=== PATIENT | female | born 2000 | race Caucasian/White ===

== ENCOUNTER 2023-12-13 11:52 | Emergency (ER) | payer BC ==
[2023-12-13 12:39] LABS: Specific Gravity 1.004 (1.005-1.030); Specific Gravity < 1.005 (1.005-1.030); Urine Bilirubin NEGATIVE (Negative); Urine Blood Negative (Negative); Urine Clarity Clear (Clear); Urine Color Colorless (Yellow); Urine Glucose NEGATIVE (Negative); Urine Ketones NEGATIVE (Negative); Urine Microscopic Reflex YN NO UMIC; Urine Nitrite NEGATIVE (Negative); Urine Protein NEGATIVE (Negative); Urine Urobilinogen Normal (Normal); Urine pH 6.5 (5.0-7.0)
[2023-12-13 12:41] LABS: Absolute Lymphocytes (CBC) 2.4 K/uL (0.7-4.9); Absolute Monocytes 0.5 K/uL (0.1-1.3); Absolute Neutrophil 4.9 K/uL (1.8-8.0); Basophils % 0.6 % (0-1.3); Eosinophils % 0.3 % (0-4.4); Hematocrit 39.4 % (36.0-45.0); Hemoglobin 13.2 g/dL (12.0-15.0); Lymphocytes % 30.3 % (15.3-44.8); MCH 30.8 pg (27.0-35.0); MCHC 33.4 g/dL (32.0-36.0); MCV 92.1 fL (80-100); Monocytes % 6.3 % (3.3-12.3); Neutrophils % 62.5 % (41.7-73.7); Nucleated Red Blood Cells % 0.1 % (0-0); Platelets 345 thou/uL (152-406); RBC Red Blood Cell Count 4.28 M/uL (3.86-4.86); Red Cell Distribution Width 13.5 % (12.1-15.2)
[2023-12-13 12:55] LABS: Anion Gap 7.6 mEq/L (5.0-15.0); Potassium 3.6 mEq/L (3.5-5.1)
--- NOTE | 2023-12-13 14:06 | RAD REPORT ---
EXAM DESCRIPTION: US - Transvaginal OB - 12/13/2023 1:29 pm CLINICAL HISTORY: r/o ectopic;Abd pain COMPARISON: No comparisons FINDINGS: The uterus measures 7.2 cm long axis. Gestational sac identified with mean sac diameter of 9 millimeters which is consistent with 5 week 5 day. A 9 mm yolk sac is noted. The uterus is septated with gestational sac in the right horn. The right ovary measures 3 x 1.5 x 1.7 cm with volume of 4.1 cc. The left ovary measures 3.7 x 2.4 x 2.6 cm with volume of 12.1 cc. Bilateral ovarian blood flow is present. Small volume of free fluid is present. Left-sided corpus luteum. Trace free fluid which is likely physiologic. IMPRESSION: 1. Gestational sac identified with mean sac diameter consistent with 5 week 5 day gestat ion. No heart tones identified likely reflecting early dates. 2. Septated uterus. Note that the gestational sac is in the right horn of the uterus. 3. Bilateral ovarian blood flow.
--- NOTE | 2023-12-13 14:21 | EDPHYS ---
Physician Documentation [facility] Name: Lourdes Marin Age: 23 yrs Sex: Female : 2000 Arrival Date: 12/13/2023 Time: 11:52 Bed 2 Private MD: ED Physician Ken Ortega HPI: 12/12 11:58 This 23 yrs old Female presents to ER via Ambulatory with complaints of , jh7 Abdominal Pain. 11:58 Onset: The symptoms/episode began/occurred 3 day(s) ago. 23-year-old female G3, P0, A2, jh7 L0 presents to the ER for right lower quadrant pain and back pain for the past 3 days. The patient reports that she just found out that she was 2 weeks ago, and just miscarried 1 month ago and a D\T\C was performed. Denies fever, dysuria, abdominal tenderness, nausea, vomiting, or bowel changes. 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 Historical: - Allergies: 12:00 No Known Allergies; ll1 - Home Meds: 12:00 Aspirin Oral [Active]; Vitamin Oral [Active]; ll1 - PMHx: 12:00 None; ll1 - PSHx: 12:00 None; ll1 - Immunization history:: Adult Immunizations up to date. - Infectious Disease History:: Denies. - Social history:: Smoking status: Patient denies any tobacco usage or history of. ROS: 11:58 Constitutional: Per HPI jh7 Exam: 11:58 Constitutional: This is a well developed, well nourished patient who is awake, alert, jh7 and in no acute distress. Head/Face: Normocephalic, atraumatic. Neck: Trachea midline, no thyromegaly or masses palpated, and no cervical lymphadenopathy. Supple, full range of motion without nuchal rigidity, or vertebral point tenderness. No Meningismus. Cardiovascular: Regular rate and rhythm with a normal S1 and S2. No gallops, murmurs, or rubs. Normal PMI, no JVD. No pulse deficits. Respiratory: Lungs have equal breath sounds bilaterally, clear to auscultation and percussion. No rales, rhonchi or wheezes noted. No increased work of breathing, no retractions or nasal flaring. Abdomen/GI: Soft, non-tender, with normal bowel sounds. No distension or tympany. No guarding or rebound. No evidence of tenderness throughout. Back: No spinal tenderness. No costovertebral tenderness. Full range of motion. Skin: Warm, dry with normal turgor. Normal color with no rashes, no lesions, and no evidence of cellulitis. MS/ Extremity: Pulses equal, no cyanosis. Neurovascular intact. Full, normal range of motion. Neuro: Awake and alert, GCS 15, oriented to person, place, time, and situation. Motor strength 5/5 in all extremities. Sensory grossly intact. Normal gait. Vital Signs: 11:58 BP 125 / 78; Pulse 95; Resp 16; Temp 97; Pulse Ox 100% ; Weight 49.9 kg; Height 5 ft. 3 ll1 in. ; Pain 5/10; 14:05 BP 117 / 69; Pulse 89; Resp 16; Pulse Ox 100% ; iw 11:58 Body Mass Index 19.49 (49.90 kg, 160.02 cm) ll1 11:58 Pain Scale: Adult ll1 MDM: 11:55 Patient medically screened. [facility] 14:15 Differential diagnosis: Threatened , ectopic , UTI, back pain in [facility] . Data reviewed: vital signs, nurses notes, lab test result(s), radiologic studies, ultrasound. Counseling: I had a detailed discussion with the patient and/or guardian regarding the historical points, exam findings, and any diagnostic results supporting the discharge/admit diagnosis, the need for outpatient follow up, an OB/Gyne specialist, to return to the emergency department if symptoms worsen or persist or if there are any questions or concerns that arise at home. 12/12 12:09 Order name: Basic Metabolic Panel; Complete Time: 13:16 [facility] 12/12 12:09 Order name: CBC with Diff; Complete Time: 13: [facility] 12/12 12:09 Order name: Test, Urine; Complete Time: 13: [facility] 12/12 12:09 Order name: Quantitative Hcg; Complete Time: 13:16 [facility] 12/12 12:09 Order name: Urinalysis w/ reflexes; Complete Time: 13:06 [facility] 12/12 12:09 Order name: US Transvaginal Ob; Complete Time: 14: [facility] 12/12 12:09 Order name: IV Saline Lock; Complete Time: : [facility] 12/12 12:09 Order name: Labs collected and sent; Complete Time: [facility] 12/12 12:09 Order name: NPO; Complete Time: 12:11 [facility] Administered Medications: No medications were administered Disposition: 18:11 Co-signature as Attending Physician, Ken Ortega MD I reviewed the patient's care rt provided by the Advanced Practice Provider and agree with the diagnosis and treatment plan. Disposition Summary: 12/13/23 14:21 Discharge Ordered Notes: Location: Home [facility] Problem: new [facility] Symptoms: have improved [facility] Condition: Stable [facility] Diagnosis - Other specified related conditions, first trimester [facility] - Less than 8 weeks gestation of [facility] - Low back pain [facility] Followup: [facility] - With: Private Physician - When: 2 - 3 days - Reason: Recheck today's complaints Discharge Instructions: - Discharge Summary Sheet [facility] - Care [facility] - Back Pain in [facility] Forms: - Medication Reconciliation Form [facility] - Thank You Letter [facility] - Patient Portal Instructions [facility] - Leadership Thank You Letter [facility] Signatures: Dispatcher [employer] Rich Grossman RN RN ll1 Kristi Leblanc RN RN ld1 Dahlia Dejesus, FLAG SIGNALER FLAG SIGNALER [facility] Ken Ortega MD MD rt
--- NOTE | 2023-12-13 14:21 | ER ---
Nurse's Notes [facility] Name: Lourdes Marin Age: 23 yrs Sex: Female : 2000 Arrival Date: 12/13/2023 Time: 11:52 Bed 2 Private MD: Diagnosis: Other specified related conditions, first trimester;Less than 8 weeks gestation of ;Low back pain Presentation: 12/12 11:58 Chief complaint: Patient states: Back pain for 2-3 days. Slight R sided abdominal and ll1 pelvic pain intermittently. About 4-5 weeks . G3, P0, AB2. Coronavirus screen: Client denies travel out of the [place] in the last 14 days. congestion. Ebola Screen: Patient denies travel to an Ebola-affected area in the 21 days before illness onset. Initial Sepsis Screen: Does the patient meet any 2 criteria? No. Patient's initial sepsis screen is negative. Does the patient have a suspected source of infection? No. Patient's initial sepsis screen is negative. Risk Assessment: Do you want to hurt yourself or someone else? Patient reports no desire to harm self or others. Onset of symptoms was December 11, 2023. 11:58 Method Of Arrival: Ambulatory 1 11:58 Acuity: JERO 3 ll1 Triage Assessment: 12:00 General: Appears in no apparent distress. comfortable, Behavior is cooperative, iw appropriate for age, anxious. Pain: Complains of pain in abdomen. GI: Abdomen is non-distended. Historical: - Allergies: 12:00 No Known Allergies; ll1 - Home Meds: 12:00 Aspirin Oral [Active]; Vitamin Oral [Active]; ll1 - PMHx: 12:00 None; ll1 - PSHx: 12:00 None; ll1 - Immunization history:: Adult Immunizations up to date. - Infectious Disease History:: Denies. - Social history:: Smoking status: Patient denies any tobacco usage or history of. Screenin:00 [facility] ED Fall Risk Assessment (Adult) History of falling in the last 3 months, iw including since admission No falls in past 3 months (0 pts). Abuse screen: Denies threats or abuse. Denies injuries from another. Nutritional screening: No deficits noted. Tuberculosis screening: No symptoms or risk factors identified. Assessment: 12:00 General: SEE TRIAGE NOTE. iw 13:56 Reassessment: Patient appears in no apparent distress at this time. Patient is alert, iw oriented x 3, equal unlabored respirations, skin warm/dry/pink. 14:51 Reassessment: Patient appears in no apparent distress at this time. Patient is alert, ld1 oriented x 3, equal unlabored respirations, skin warm/dry/pink. Vital Signs: 11:58 BP 125 / 78; Pulse 95; Resp 16; Temp 97; Pulse Ox 100% ; Weight 49.9 kg; Height 5 ft. 3 ll1 in. ; Pain 5/10; 14:05 BP 117 / 69; Pulse 89; Resp 16; Pulse Ox 100% ; iw 11:58 Body Mass Index 19.49 (49.90 kg, 160.02 cm) ll1 11:58 Pain Scale: Adult ll1 ED Course: 11:54 Patient arrived in ED. mr 11:55 Dahlia Dejesus, [place] 11:55 Ken Ortega MD is Attending Physician. [facility] 12:00 Triage completed. ll1 12:00 Patient has correct armband on for positive identification. iw 12:01 Arm band placed on Patient placed in an exam room, on a stretcher. ll1 12:02 Ck Buck, RN is Primary Nurse. bp 12:22 Urinalysis w/ reflexes Sent. bp 12:22 Quantitative Hcg Sent. bp 12:22 Test, Urine Sent. bp 12:22 CBC with Diff Sent. bp 12:23 Basic Metabolic Panel Sent. bp 12:23 Inserted saline lock: 22 gauge in right antecubital area, using aseptic technique. bp Blood collected. 13:31 US Transvaginal Ob In Process Unspecified. EDKY 14:52 No provider procedures requiring assistance completed. IV discontinued, intact, ld1 bleeding controlled, No redness/swelling at site. Administered Medications: No medications were administered Medication: 14:52 VIS not applicable for this client. ld1 Outcome: 14:21 Discharge ordered by . [facility] 14:52 Discharged to home ld1 14:52 Condition: stable 14:52 Discharge instructions given to patient, 14:52 Patient left the ED. ld1 Signatures: Dispatcher [employer] EDKY Radha Cabrera, Reg Reg Jazmín Díaz RN RN Ck Shell, RN RN bp Rich Alva, RN RN ll1 Kristi Leblanc, RN RN ld1 Dahlia Dejesus, DREDGE PIPE INSTALLER DREDGE PIPE INSTALLER jh7
[2023-12-13 15:29] VITALS: BP 117/69; TEMP 97; O2SAT 100
== END 2023-12-13 14:52 | disposition home or self-care (01) ==
LOC: ER 11:52
DX: O26.891 Other specified pregnancy related conditions, first trimester (principal); M54.50 Low back pain, unspecified; Z3A.01 Less than 8 weeks gestation of pregnancy; Z79.82 Long term (current) use of aspirin
CPT/HCPCS: 36415; 76817; 80048; 81003; 81025; 84702; 85025; 99283